=== PATIENT | male | born 1955 | race Caucasian/White ===

== ENCOUNTER → 2020-09-22 | Outpatient (CLI) | payer MEDICARE, OTHER | END | disposition home or self-care (01) | LOC: RAD 17:23 | PROVIDERS: ATTEND Internal Medicine Nephrology | DX: N32.89 Other specified disorders of bladder (principal); N13.30 Unspecified hydronephrosis; N13.9 Obstructive and reflux uropathy, unspecified; I10 Essential (primary) hypertension; E78.5 Hyperlipidemia, unspecified; R94.4 Abnormal results of kidney function studies; Z86.39 Personal history of other endocrine, nutritional and metabolic disease | CPT/HCPCS: 76770 ==

== ENCOUNTER 2021-01-30 13:32 | Observation (INO) | payer MEDICARE, OTHER ==
[2021-01-27 12:08] LABS: MICROSCOPIC AUTO
[2021-01-27 12:11] LABS: BASOPHILS % (AUTO) 1 % (0-1); EOSINOPHILS % (AUTO) 1 % (1-7); LYMPHOCYTES % (AUTO) 26 % (22-44); MEAN CORPUSCULAR HEMOGLOBIN 29.8 pg (27.5-34.5); MEAN CORPUSCULAR HGB CONC 34.3 g/dL (33.2-36.2); MEAN PLATELET VOLUME 7.5 fL (7.4-10.4); MONOCYTES % (AUTO) 10 % (2-9); NEUTROPHILS % (AUTO) 63 % (42-75); PLATELET COUNT 260 x10^3/uL (130-400); RED BLOOD COUNT 5.72 x10^6/uL (4.38-5.82); RED CELL DISTRIBUTION WIDTH 13.8 % (9.4-14.8)
[2021-01-27 12:16] LABS: ALBUMIN 3.8 g/dL (3.4-5.0); ANION GAP 8 mmol/L (5-15); CALCIUM 9.9 mg/dL (8.5-10.1); CHLORIDE 105 mmol/L (98-107)
[2021-01-27 12:20] LABS: ALANINE AMINOTRANSFERASE 28 U/L (12-78); ALKALINE PHOSPHATASE 104 U/L (45-117); BILIRUBIN,TOTAL 0.7 mg/dL (0.2-1.0); CREATININE 1.82 mg/dL (0.7-1.3); TOTAL PROTEIN 8.1 g/dL (6.4-8.2)
[2021-01-27 12:21] LABS: INTERNATIONAL NORMALIZED RATIO 0.96 (0.93-1.1); PROTHROMBIN TIME 10.3 Seconds (9.6-11.5)
[~2021-01-30] VITALS: Ht 185.4 cm; Wt 107.9 kg
[2021-01-30 13:55] VITALS: BP 159/105
[2021-01-30] MEDS ORDERED: CHLORHEXIDINE 15 ML UDC PO ONE (14:00)
[2021-01-30] MEDS ORDERED: CHLORHEXIDINE 15 ML UDC ONE (14:02)
[2021-01-30] MEDS ORDERED: LACTATED RINGERS 1,000 ML IV SCH (15:00)
[2021-01-30] MEDS ORDERED: MIDAZOLAM 1 MG/ML, 2ML ONE (15:40)
[2021-01-30] MEDS ORDERED: CEFAZOLIN 1,000 MG ONE ×2 (15:41)
[2021-01-30] MEDS ORDERED: FENTANYL PF 250 MCG/5ML ONE (15:41)
[2021-01-30] MEDS ORDERED: PROPOFOL 10 MG/ML, 20ML ONE (15:41)
[2021-01-30] MEDS ORDERED: HYDROmorphone 1 MG/ML, 1ML INJ IVPush PRN (17:00)
[2021-01-30] MEDS ORDERED: OXYcodone 5 MG/5 ML ORAL.SOL UDC PO PRN ×2 (17:00→21:00)
[2021-01-30] MEDS ORDERED: ONDANSETRON 2MG/ML, 2ML IVPush PRN (17:00)
[2021-01-30] MEDS ORDERED: ACETAMINOPHEN 325 MG TABLET PO PRN (17:00)
[2021-01-30] MEDS ORDERED: LABETALOL 5MG/ML, 20ML IV PRN (17:00)
[2021-01-30] MEDS ORDERED: morphine SULFATE 10 MG/ML, 1ML IVPush PRN (17:00)
[2021-01-30] MEDS ORDERED: FENTANYL PF 100 MCG/2ML IV PRN (17:00)
[2021-01-30] MEDS ORDERED: PHENYLEPHRINE 10 MG/ML ONE (17:03)
[2021-01-30] MEDS ORDERED: OXYcodone 5 MG/5 ML ORAL.SOL UDC ONE (18:58)
[2021-01-30] MEDS ORDERED: ACETAMINOPHEN 650 MG/20.3 ML UDC ONE (18:58)
[2021-01-30] MEDS ORDERED: FENTANYL PF 100 MCG/2ML ONE (19:12)
[2021-01-30] MEDS ORDERED: hydrALAzine 20 MG/ML, 1ML ONE (19:12)
[2021-01-30] MEDS: hydrALAzine 20 MG/ML, 1ML IV PRN ×2 (19:15→19:33)
[2021-01-30] MEDS ORDERED: LABETALOL 5MG/ML, 20ML ONE (19:48)
[2021-01-30] MEDS ORDERED: HYDROmorphone 1 MG/ML, 1ML INJ IV PRN (21:00)
[2021-01-30] MEDS ORDERED: OPIUM/BELLADONNA SUPP.RECT 16.2-60 MG PR PRN (21:00)
[2021-01-30 21:08] VITALS: BP 162/89
[2021-01-31 01:08] VITALS: BP 130/78
[2021-01-31] MEDS: SODIUM CHLORIDE 0.9% 1,000 ML IV SCH ×2 (03:23→10:51)
[2021-01-31 07:43] VITALS: BP 149/83
[2021-01-31] MEDS ORDERED: POLYETHYLENE GLYCOL 17 GM PACKET PO SCH (09:00)
== END 2021-01-31 13:12 | disposition home or self-care (01) ==
LOC: OR 13:32 → ORIP 20:32 → 4NE 21:00
PROVIDERS: ADMIT Student in an Organized Health Care Education/Training Program; ATTEND Student in an Organized Health Care Education/Training Program
DX: N40.1 Benign prostatic hyperplasia with lower urinary tract symptoms (principal); R30.0 Dysuria; R31.0 Gross hematuria; I12.9 Hypertensive chronic kidney disease with stage 1 through stage 4 chronic kidney disease, or unspecified chronic kidney disease; E11.22 Type 2 diabetes mellitus with diabetic chronic kidney disease; N18.9 Chronic kidney disease, unspecified; E78.5 Hyperlipidemia, unspecified; N13.30 Unspecified hydronephrosis; B65.9 Schistosomiasis, unspecified; N32.0 Bladder-neck obstruction; N32.89 Other specified disorders of bladder; R79.89 Other specified abnormal findings of blood chemistry; N28.89 Other specified disorders of kidney and ureter; Z91.040 Latex allergy status; Z79.899 Other long term (current) drug therapy; Z90.79 Acquired absence of other genital organ(s)
CPT/HCPCS: 36415; 52601; 80053; 81001; 82962; 85025; 85610; 87086; 88305; 93005; 96360; 96361; G0378; J0360; J0690; J2250; J2370; J2704; J3010; J7030; J7120